=== PATIENT | male | born 1995 | race Caucasian/White ===

== ENCOUNTER 2018-08-05 12:05 | Emergency (ER) | payer BC ==
[2018-08-05] MEDS ORDERED: HYDROmorphONE/DILAUDID 1 MG/ML INJ IVP ONE (12:30)
[2018-08-05] MEDS ORDERED: NS 1,000 ML IV ONE (12:30)
--- NOTE | 2018-08-05 12:31 | EDPHY ---
H & P Stated Complaint: Left testicular pain and swelling since last night. Time Seen by Provider: 08/05/18 12:23 HPI/ROS: Chief Complaint: Abdominal in testicle pain HPI: 23-year-old male began having moderate testicular pain in the left hand side last night. Over the course of the night scant and significantly worse. Patient states the pain began as some discomfort in his left lower abdomen. Does not have a history of similar. Says his testicle is swollen and very tender at this point. He is sexually active with multiple partners. No history of sexually transmitted infections in the past. No urethral discharge. No rashes. No new lesions. No urinary urgency or frequency. Some nausea no vomiting. Pain is currently 8/10. No falls or injuries or direct blows. ROS: 10 systems were reviewed and were negative except those elements noted in the HPI. PMH: Denies Social History: No smoking, occasional alcohol, no recreational drug use Family History: non-contributory Physical Exam: Gen: Awake, Alert, No Distress HEENT: Nose: no rhinorrhea Eyes: PERRLA, EOMI Mouth: Moist mucosa Neck: Supple, no JVD Chest: nontender, lungs clear to auscultation Heart: S1, S2 normal, no murmur Abd: Soft, non-tender, moderate lower abdominal General: Normal penis, left testicle is swollen and tender with abnormal lie. He is exquisitely tender. Moderate swelling. No erythema. Moderate right testicular tenderness. I am unable to appreciate a cremasteric. Back: no CVA tenderness, no midline tenderness Ext: no edema, non-tender Skin: no rash Neuro: CN II-XII intact, Sensation grossly intact, Strength 5/5 in bilateral upper and lower extremities - Personal History Current Tetanus Diphtheria and Acellular Pertussis (TDAP): Yes - Medical/Surgical History Hx Asthma: No Hx Chronic Respiratory Disease: No Hx Diabetes: No Hx Cardiac Disease: No Hx Renal Disease: No Hx Cirrhosis: No Hx Alcoholism: No Hx HIV/AIDS: No Hx Splenectomy or Spleen Trauma: No Other PMH: Denies - Social History Smoking Status: Never smoked Constitutional: Initial Vital Signs Temperature (C) 37.4 C 08/05/18 12:07 Heart Rate 105 H 08/05/18 12:07 Respiratory Rate 18 08/05/18 12:07 Blood Pressure 148/82 H 08/05/18 12:07 O2 Sat (%) 98 08/05/18 12:07 O2 Delivery Mode Room Air Allergies/Adverse Reactions: No Known Allergies Allergy (Unverified 08/05/18 12:09) Home Medications: Medication Instructions Recorded Doxycycline Hyclate 100 mg PO BID 10 Days tablet 08/05/18 Hydrocodone/Acetaminophen 1 - 2 each PO Q4-6PRN PRN #10 08/05/18 [Hydrocodon-Acetaminophen 5-325] tablet Paroxetine ER 08/05/18 Medical Decision Making - Diagnostics Imaging Results: Imaging Impressions Testicular Ultrasound 08/05/18 12:30 Impression: Dramatic left epididymitis. Results discussed with Dr. Vivar at 14:21 PM. ED Course/Re-evaluation: Ultrasound results noted. Given his age and risk factors she has been given ceftriaxone and doxycycline. Will refer to Urology given the severity of his symptoms. Return for any concerns. Also given short course of hydrocodone with acetaminophen for nighttime with he is having significant pain. - Data Points Laboratory Results: Laboratory Results 08/05/18 12:15 08/05/18 12:15 08/05/18 08/05/18 08/05/18 13:05 13:05 12:15 WBC RBC Hgb Hct MCV MCH MCHC RDW Plt Count MPV Neut % (Auto) Lymph % (Auto) [place] % (Auto) Eos % (Auto) Baso % (Auto) Nucleat RBC Rel Count Absolute Neuts (auto) Absolute Lymphs (auto) Absolute Monos (auto) Absolute Eos (auto) Absolute Basos (auto) Absolute Nucleated RBC Immature Gran % Immature Gran # Sodium 137 mEq/L mEq/L (135-145) Potassium 4.2 mEq/L mEq/L (3.5-5.2) Chloride 105 mEq/L mEq/L (97-110) Carbon Dioxide 21 mEq/l L mEq/l (22-31) Anion Gap 11 mEq/L mEq/L (6-14) BUN 18 mg/dL mg/dL (7-23) Creatinine 1.2 mg/dL mg/dL (0.7-1.3) Estimated GFR > 60 Glucose 97 mg/dL mg/dL (70-100) Calcium 9.8 mg/dL mg/dL (8.5-10.4) Urine Color YELLOW Urine Appearance CLEAR Urine pH 6.0 (5.0-7.5) Ur Specific [place] 1.024 (1.002-1.030) Urine Protein NEGATIVE (NEGATIVE) Urine Ketones TRACE H (NEGATIVE) Urine Blood NEGATIVE (NEGATIVE) Urine Nitrate NEGATIVE (NEGATIVE) Urine Bilirubin NEGATIVE (NEGATIVE) Urine Urobilinogen NEGATIVE EU EU (0.2-1.0) Ur Leukocyte Esterase NEGATIVE (NEGATIVE) Urine Glucose NEGATIVE (NEGATIVE) C.trachomatis RNA (TMA) Pending N.gonorrhoeae RNA (TMA) Pending 08/05/18 12:15 WBC 12.93 10^3/uL H 10^3/uL (3.80-9.50) RBC 5.50 10^6/uL 10^6/uL (4.40-6.38) Hgb 16.0 g/dL g/dL (13.7-17.5) Hct 47.4 % % (40.0-51.0) MCV 86.2 fL fL (81.5-99.8) MCH 29.1 pg pg (27.9-34.1) MCHC 33.8 g/dL g/dL (32.4-36.7) RDW 11.9 % % (11.5-15.2) Plt Count 223 10^3/uL 10^3/uL (150-400) MPV 10.3 fL fL (8.7-11.7) Neut % (Auto) 78.4 % H % (39.3-74.2) Lymph % (Auto) 10.4 % L % (15.0-45.0) [place] % (Auto) 10.3 % % (4.5-13.0) Eos % (Auto) 0.5 % L % (0.6-7.6) Baso % (Auto) 0.2 % L % (0.3-1.7) Nucleat RBC Rel Count 0.0 % % (0.0-0.2) Absolute Neuts (auto) 10.12 10^3/uL H 10^3/uL (1.70-6.50) Absolute Lymphs (auto) 1.35 10^3/uL 10^3/uL (1.00-3.00) Absolute Monos (auto) 1.33 10^3/uL H 10^3/uL (0.30-0.80) Absolute Eos (auto) 0.07 10^3/uL 10^3/uL (0.03-0.40) Absolute Basos (auto) 0.03 10^3/uL 10^3/uL (0.02-0.10) Absolute Nucleated RBC 0.00 10^3/uL 10^3/uL (0-0.01) Immature Gran % 0.2 % % (0.0-1.1) Immature Gran # 0.03 10^3/uL 10^3/uL (0.00-0.10) Sodium Potassium Chloride Carbon Dioxide Anion Gap BUN Creatinine Estimated GFR Glucose Calcium Urine Color Urine Appearance Urine pH Ur Specific [place] Urine Protein Urine Ketones Urine Blood Urine Nitrate Urine Bilirubin Urine Urobilinogen Ur Leukocyte Esterase Urine Glucose C.trachomatis RNA (TMA) N.gonorrhoeae RNA (TMA) Medications Given: Discontinued Medications Hydromorphone HCl (Dilaudid) 0.5 mg IVP EDNOW ONE Stop: 08/05/18 12:31 Last Admin: 08/05/18 12:41 Dose: 0.5 mg Sodium Chloride (Ns) 1,000 mls @ 0 mls/hr IV ONCE ONE; Wide Open PRN Reason: Protocol Stop: 08/05/18 12:31 Last Admin: 08/05/18 12:43 Dose: 1,000 mls Departure - Departure Disposition: Home, Routine, Self-Care Clinical Impression: Epididymitis Condition: Good Instructions: Epididymitis (ED) Additional Instructions: Take ibuprofen, 600 mg every 8 hr. You may alternate with acetaminophen, 1000 mg every 8 hr. For breakthrough pain at night time you may take hydrocodone with acetaminophen. Please take her full course of antibiotics. Call back Tuesday afternoon for your STI test results. If those are positive make sure you contact any sexual partners for testing and treatment. Abstain from sexual activity until you at have complete your course of antibiotics. Follow up with Urology in 4-5 days for recheck. Return to the emergency department for worsening pain, swelling, uncontrolled fevers or chills, or any other concerns. Referrals: NONE *PRIMARY CARE P,. [Primary Care Provider] - As per Instructions Prescriptions: Doxycycline Hyclate 100 mg PO BID 10 Days tablet Hydrocodone/Acetaminophen [Hydrocodon-Acetaminophen 5-325] 1 - 2 each PO Q4- 6PRN PRN #10 tablet PRN Reason: Pain, Severe
[2018-08-05 13:02] LABS: PLATELET COUNT 223 10^3/uL (150-400)
[2018-08-05] MEDS ORDERED: DOXYCYCLINE HYCLATE 100 MG CAP/TAB PO ONE (14:29)
[2018-08-05 15:30] VITALS: BP 141/81
[2018-08-07 12:22] LABS: GC AMPLIFICATION GENPROBE NEGATIVE (NEGATIVE)
== END 2018-08-05 15:30 | disposition home or self-care (01) ==
DX: N45.1 Epididymitis (principal); E86.9 Volume depletion, unspecified
CPT/HCPCS: 96374; J0696; J1170